=== PATIENT | male | born 1950 | race Caucasian/White ===

== ENCOUNTER 2019-03-28 13:37 | Emergency (ER) | payer OTHER ==
--- NOTE | 2019-03-28 18:02 | RAD ---
RIGHT SHOULDER THREE VIEWS: 03/28/19 No fracture or dislocation was seen. Degenerative changes are present in the AC joint along with some bony spurring that projects inferiorly and could potentially impinge upon rotator cuff muscles. IMPRESSION: No acute findings. Degenerative changes of the AC joint. POS: HOME
--- NOTE | 2019-03-28 18:32 | CT ---
CT OF THE CERVICAL SPINE 03/28/19 There may be some slight loss of the normal cervical lordosis. No fracture or dislocation was seen. D egenerative changes are present throughout with possible slight disc space narrowing at C6-C7. The C1 to dens distance is normal. The soft tissues are normal in thickness. Findings by level follow: C1-C2: No acute findings. C2-C3: No acute findings. C3-C4: No acute findings. 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 Minimal left foraminal narrowing. C5-C6: No acute findings. C6-C7: No acute findings. C7-T1: No acute findings. T1-T2: No acute findings. IMPRESSION: Degenerative changes as noted. No fracture seen. POS: HOME
== END 2019-03-28 15:25 | disposition home or self-care (01) ==
LOC: BURERS 13:37
DX: S13.4XXA Sprain of ligaments of cervical spine, initial encounter (principal); M25.511 Pain in right shoulder; I25.10 Atherosclerotic heart disease of native coronary artery without angina pectoris; E03.9 Hypothyroidism, unspecified; K21.9 Gastro-esophageal reflux disease without esophagitis; E78.5 Hyperlipidemia, unspecified; I10 Essential (primary) hypertension; J44.9 Chronic obstructive pulmonary disease, unspecified; Z87.891 Personal history of nicotine dependence; V43.52XA Car driver injured in collision with other type car in traffic accident, initial encounter
CPT/HCPCS: 72125

== ENCOUNTER 2020-03-12 10:42 | Outpatient (CLI) | payer OTHER ==
--- NOTE | 2020-03-12 14:54 | RAD ---
LEFT SHOULDER 3 VIEWS: DATE: 03/12/2020. FINDINGS: No fracture, dislocation, or area of bony destruction was seen. The glenohumeral joint was unremarka ble. There is some minor degenerative change in the AC joint consisting of some tiny osteophytes luanne t project inferiorly. These potentially could impinge on the rotator cuff. IMPRESSION: Minor acromioclavicular arthritic change. Exam otherwise unremarkable. POS: HOME
== END 2020-03-12 10:43 | disposition home or self-care (01) ==
LOC: BURRAD 10:42
PROVIDERS: ATTEND Family Medicine
DX: M25.512 Pain in left shoulder (principal); M19.012 Primary osteoarthritis, left shoulder

== ENCOUNTER 2022-02-16 10:09 | Emergency (ER) | payer OTHER ==
[2022-02-16] MEDS ORDERED: Iopamidol 370 76% 100 ML VIAL FS ONE (10:10)
[2022-02-16 10:35] LABS: Hemoglobin 13.1 g/dL (14.0-18.0); Mean Corpuscular HGB CONC 34.4 g/dL (32.0-36.0); Mean Corpuscular Hemoglobin 34.2 pg (27.0-31.0); Mean Corpuscular Volume 99.4 fL (78.0-98.0); Mean Platelet Volume 8.2 fL (7.4-10.4); Platelet Count 196 thou/uL (130-400); RBC Distribution Width 12.6 % (11.5-14.5); Red Blood Cell (RBC) Count 3.82 mill/uL (4.70-6.10); White Blood Cell (WBC) Count 7.1 thou/uL (4.8-10.8)
[2022-02-16 10:37] LABS: PTT 38.1 sec (22.9-36.1)
[2022-02-16 10:43] LABS: ALT (SGPT) 21 U/L (8-55); AST (SGOT) 15 U/L (5-34); Albumin 3.7 g/dL (3.4-4.8); Alkaline Phosphatase 64 U/L (40-110); Anion Gap 13 mmol/L (10-20); BUN (Urea Nitrogen) 14 mg/dL (8.4-25.7); Bilirubin, Total 0.3 mg/dL (0.2-1.2); Calc. Creatinine Clearance 0 mL/min (70-130); Calcium 8.7 mg/dL (7.8-10.44); Carbon Dioxide 27 mmol/L (23-31); Chloride 106 mmol/L (98-107); Glucose 92 mg/dL (80-115); Potassium 4.1 mmol/L (3.5-5.1); Protein, Total 6.7 g/dL (5.8-8.1); Sodium 142 mmol/L (136-145)
[2022-02-16 10:49] LABS: Prothrombin Time 13.3 sec (12.0-14.7)
[2022-02-16 10:51] LABS: Band 6 % (5-11); Lymphocytes 39 % (21-51); MDiff Complete? YES; Monocytes 25 % (0-10); Neutrophil 29 % (42-75); Platelet Morphology Comment Appears Adequate; RBC Morphology Normal
[2022-02-16 11:07] LABS: Bilirubin Negative (Negative); Blood, Urine Negative (Negative); Clarity Clear (Clear); Glucose, Urine (Dipstick) Negative (Negative); Ketone, Urine Negative (Negative); Leukocyte Negative (Negative); Nitrite Negative (Negative); Protein, Urine (Dipstick) Negative (Neg-Trace); Specific Gravity, Urine 1.015 (1.005-1.030); Urobilinogen 0.2 mg/dL (Less than 2)
[2022-02-16] MEDS ORDERED: Fentanyl 100 MCG/2 ML VIAL ONE (11:18)
== END 2022-02-16 12:35 | disposition short-term general hospital (02) ==
LOC: BURERS 10:09
DX: R42 Dizziness and giddiness (principal); R51.9 Headache, unspecified; I10 Essential (primary) hypertension; I25.10 Atherosclerotic heart disease of native coronary artery without angina pectoris; J44.9 Chronic obstructive pulmonary disease, unspecified; E03.9 Hypothyroidism, unspecified; E78.5 Hyperlipidemia, unspecified; K21.9 Gastro-esophageal reflux disease without esophagitis; Z87.891 Personal history of nicotine dependence
CPT/HCPCS: 0042T; 36416; 70450; 70496; 70498; 71045; 80053; 81003; 83880; 84484; 85025; 85610; 85730; 93005; 94760; 96374; J3010; Q9967